=== PATIENT | female | born 1985 | race Caucasian/White ===

== ENCOUNTER 2020-02-20 18:58 | Emergency (ER) | payer MEDICAID, OTHER ==
[~2020-02-20] VITALS: Ht 157.5 cm; Wt 58.2 kg
[~2020-02-20 18:58] MED LIST: CHAN1PAK11 PO; FOLI1TAB11 PO; KLON0.5T PO; MELA3TAB24 PO; NALT50TA4 PO; NICO21PAT TD; PARO20TA3 PO; PARO5TAB PO; PAXI20TA29 PO; QUET100T2 PO; QUET1TAB7 PO; QUET5TAB PO; SERO1TAB PO; THIA100TA PO; VITMTA PO
[2020-02-20 19:00] VITALS: BP 117/67
--- OUTSIDE RECORDS SUMMARY | 2020-02-20 19:05 | CCD ---
Author Author [facility] Address Unknown Phone Unavailable Support Name Relationship Address Phone UE Next Of Kin Unknown Unavailable [facility] Next Of Kin [address] [address] Re-disclosure Warning The records that you are about to access may contain information from federally-assisted alcohol or drug abuse programs. If such information is present, then the following federally mandated warning applies: This information has been disclosed to you from records protected by federal confidentiality rules (42 CFR part 2). The federal rules prohibit you from making any further disclosure of this information unless further disclosure is expressly permitted by the written consent of the person to whom it pertains or as otherwise permitted by 42 CFR part 2. A general authorization for the release of medical or other information is NOT sufficient for this purpose. The Federal rules restrict any use of the information to criminally investigate or prosecute any alcohol or drug abuse patient.The records that you are about to access may contain highly sensitive health information, the redisclosure of which is protected by Article 27-F of the [facility] Public Health law. If you continue you may have access to information: Regarding HIV / AIDS; Provided by facilities licensed or operated by the [facility] Office of Mental Health; or Provided by the [facility] Office for People With Developmental Disabilities. If such information is present, then the following [facility] mandated warning applies: This information has been disclosed to you from confidential records which are protected by state law. State law prohibits you from making any further disclosure of this information without the specific written consent of the person to whom it pertains, or as otherwise permitted by law. Any unauthorized further disclosure in violation of state law may result in a fine or chcf sentence or both. A general authorization for the release of medical or other information is NOT sufficient authorization for further disc losure. Insurance Providers Payer name Policy type / Coverage type Policy ID Covered democrat ID Covered democrat's relationship to ya Policy Ya Plan Information [facility] [id number] SP [id number] [facility] [id number] SP [id number] [facility] [id number] SP [id number] SP [id number] Results ID Date Data Source [id number] 01/27/2020 07:50:00 AM EST [facility] Name Value Range Interpretation Code Description Data Dona rce(s) Supporting Document(s) SARS coronavirus 2 RNA [Presence] in Res piratory specimen by MARIANGEL with probe detection [facility] This lab was ordered by [facility] a nd reported by [facility]. Procedure
[2020-02-20] MEDS ORDERED: B-1100TA2 (19:16)
--- OUTSIDE RECORDS SUMMARY | 2020-02-20 20:31 | CCD ---
Author Author [facility] Address Unknown Phone Unavailable Support Name Relationship Address Phone UE Next Of Kin Unknown Unavailable [facility] Next Of Kin [address] [place] [address] Re-disclosure Warning The records that you are [...] is protected by Article 27-F of the [facility] Public Health law. If you continue you may have access to information: Regarding HIV / AIDS; Provided by facilities licensed or operated by the [facility] Office of Mental Health; or Provided by the [facility] Office for People With Developmental Disabilities. If such information is present, then the following [facility] mandated warning applies: This information has [...] law may result in a fine or half-way sentence or both. A general authorization for the release of medical or other information is NOT sufficient authorization for further disc losure. Insurance Providers Payer name Policy type / Coverage type Policy ID Covered green party ID Covered green party's relationship to ya Policy Ya Plan Information [facility] [id number] SP [id number] [facility] [id number] SP [id number] [facility] [id number] SP [id number] SP [id number] Results ID Date Data Source [id number] 01/27/2020 07:50:00 AM EST [facility] Name Value Range Interpretation Code Description Data Dona rce(s) Supporting Document(s) SARS coronavirus 2 RNA [Presence] in Res piratory specimen by MARIANGEL with probe detection [facility] This lab was ordered by [facility] a nd reported by [facility]. Procedure
[2020-02-20] MEDS ORDERED: NAPROXEN 250 MG TAB PO ONE (21:15)
--- NOTE | 2020-02-20 21:28 | REPVR ---
PROCEDURE INFORMATION: Exam: XR Right Ankle Exam date and time: 02/20/2020 8:33 PM Age: 34 years old Clinical indication: Pain and injury or trauma; Fall; Difficulty in walking and swelling or effusion of joint; Ankle; Sprain or strain and swelling (edema); Right; Additional info: Swelling, unable to bear weight TECHNIQUE: Imaging protocol: XR Right ankle. Views: 3 or more views. COMPARISON: No relevant prior studies available. FINDINGS: Bones/joints: There is an acute, minimally displaced fracture of the right lateral malleolus, with predominantly oblique fracture lines and lateral displacement of the distal component of the fracture by approximately 2 mm. There is asymmetric widening of the lateral aspect of the right ankle mortise. There is an old healed fracture deformity involving the right distal tibial diaphysis, which was not fully imaged. There is a right tibiotalar joint effusion. Soft tissues: There is soft tissue swelling along the lateral aspect of the right ankle. IMPRESSION: 1. Acute, minimally displaced fracture of the right lateral malleolus. 2. Asymmetric widening of the lateral aspect of the right ankle mortise, which may indicate an injury to the lateral ligaments. 3. Soft tissue swelling along the lateral aspect of the right ankle. Electronically signed by: Ari Casper On 02/20/2020 21:28:50 PM
--- NOTE | 2020-02-20 21:29 | REPVR ---
PROCEDURE INFORMATION: Exam: XR Left Knee Exam date and time: 02/20/2020 8:33 PM Age: 34 years old Clinical indication: Pain; Knee; Left; Additional info: Pain with weight bearing TECHNIQUE: Imaging protocol: XR Left knee. Views: 1 or 2 views. COMPARISON: No relevant prior studies available. FINDINGS: Bones/joints: There is no fracture or dislocation. No joint effusion is identified. The joint spaces are preserved. No arthropathy is noted. Soft tissues: Unremarkable. IMPRESSION: No fracture or dislocation of the left knee. Electronically signed by: Ari Casper On 02/20/2020 21:29:44 PM
--- NOTE | 2020-02-22 14:48 | ED PDOC ---
Post-Departure Follow-Up certified letter sent to pt. unable to tell if pt was aware of fracture. please disclose and ask her to fu or ortho and/or return for casting.Evelina Jaimes MD Feb 22, 2020 14:48
== END 2020-02-20 21:28 | disposition left against medical advice (07) ==
LOC: MERGE 18:58 → M ED 18:58
DX: S82.61 Displaced fracture of lateral malleolus of right fibula (principal); M25.562 Pain in left knee; W01.0XXA Fall on same level from slipping, tripping and stumbling without subsequent striking against object, initial encounter; Y92.89 Other specified places as the place of occurrence of the external cause; Y93.01 Activity, walking, marching and hiking; Y99.8 Other external cause status; F99 Mental disorder, not otherwise specified; Z88.0 Allergy status to penicillin; Z79.899 Other long term (current) drug therapy

== ENCOUNTER 2023-04-27 22:05 | Emergency (ER) | payer OTHER, SELFPAY ==
[~2023-04-27] VITALS: Ht 157.5 cm; Wt 71.4 kg
[~2023-04-27 22:05] MED LIST changes: +B-1100TA2; -KLON0.5T PO; +KLON0.5T8 PO; -PAXI20TA29 PO; +PAXI20TA30 PO; +QUET1TAB17 PO; -QUET1TAB7 PO; +QUET50TA4 PO; -QUET5TAB PO
[2023-04-27 23:14] LABS: BASO # 0.1 10^3/uL (0.0-0.2); BASO % 0.8 % (0.0-1.0); EOS # 0.6 10^3/uL (0.0-0.5); EOS % 5.3 % (0.0-3.0); HEMATOCRIT 38.3 % (36.0-47.0); HEMOGLOBIN 13.2 g/dl (12.0-15.5); LYMPH # 2.3 10^3/uL (1.5-5.0); MEAN CORPUSCULAR HEMOGLOBIN 30.3 pg (27.0-33.0); MEAN CORPUSCULAR HGB CONC 34.5 g/dl (32.0-36.5); MONO # 0.7 10^3/uL (0.0-0.8); MONO % 5.9 % (2.0-8.0); NEUTROPHILS # 7.6 10^3/uL (1.5-8.5); NEUTROPHILS % 67.2 % (36.0-66.0); PLATELET COUNT, AUTOMATED 300 10^3/uL (150-450); RED BLOOD COUNT 4.35 10^6/uL (4.00-5.40); WHITE BLOOD COUNT 11.3 10^3/uL (4.0-10.0)
[2023-04-27 23:22] LABS: APPEARANCE, URINE HAZY (CLEAR); BACTERIA, URINE AUTO NEGATIVE (NEGATIVE); BILIRUBIN, URINE AUTO NEGATIVE (NEGATIVE); BLOOD, URINE BLOOD 1+ (NEGATIVE); COLOR, URINE YELLOW (YELLOW); GLUCOSE, URINE (UA) AUTO NEGATIVE (NEGATIVE); KETONE, URINE AUTO NEGATIVE (NEGATIVE); LEUKOCYTE ESTERASE, URINE AUTO NEGATIVE (NEGATIVE); MUCUS, URINE SMALL (NEGATIVE); NITRITE, URINE AUTO NEGATIVE (NEGATIVE); PROTEIN, URINE AUTO NEGATIVE (NEGATIVE); RBC, URINE AUTO 3 /HPF (0-3); SPECIFIC GRAVITY URINE AUTO 1.017 (1.002-1.035); SQUAMOUS EPITHELIAL CELL UR AU 3 /HPF (0-6); UROBILINOGEN, URINE AUTO 0.2 mg/dL (0.0-2.0); WBC, URINE AUTO 1 /HPF (0-3)
[2023-04-27 23:37] LABS: LIPASE 34 U/L (12-53)
[2023-04-27 23:40] LABS: ALBUMIN 3.8 G/DL (3.2-5.2); ALKALINE PHOSPHATASE 73 U/L (46-116); ALT/SGPT < 9 U/L (7.0-40); AST/SGOT 15 U/L (<34); BILIRUBIN,TOTAL 0.2 MG/DL (0.3-1.2); BLOOD UREA NITROGEN 13 MG/DL (9-23); CALCIUM LEVEL 9.5 MG/DL (8.5-10.1); CARBON DIOXIDE LEVEL 28 MMOL/L (20-31); CHLORIDE LEVEL 104 MMOL/L (98-107); CREATININE FOR GFR 0.78 MG/DL (0.55-1.30); GLOMERULAR FILTRATION RATE > 60.0 (>60); GLUCOSE, FASTING 101 MG/DL (60-100); POTASSIUM SERUM 3.8 MMOL/L (3.5-5.1); SODIUM LEVEL 138 MMOL/L (136-145); TOTAL PROTEIN 6.7 G/DL (5.7-8.2)
[2023-04-28] MEDS: ONDANSETRON 4MG ORAL DISINTEGRATING TAB PO ONE (00:34)
[2023-04-28 02:59] LABS: LIPASE 32 U/L (12-53)
[2023-04-28 03:01] LABS: HCG, SERUM QUALITATIVE NEGATIVE (NEGATIVE)
[2023-04-28 03:07] LABS: ALBUMIN 4.3 G/DL (3.2-5.2); ALKALINE PHOSPHATASE 75 U/L (46-116); ALT/SGPT 14 U/L (7.0-40); AST/SGOT 8 U/L (<34); BILIRUBIN,DIRECT < 0.1 MG/DL (<0.4); BILIRUBIN,TOTAL 0.3 MG/DL (0.3-1.2); TOTAL PROTEIN 7.4 G/DL (5.7-8.2)
[2023-04-28] MEDS ORDERED: ISOVUE-370 76% 100ML VIAL As Ordered ONE (03:46)
[2023-04-28] MEDS: KETOROLAC 30 MG/ML 1ML VIAL IV ONE (03:59)
[2023-04-28] MEDS: NS 1,000 ML IV ONE (03:59)
[2023-04-28] MEDS: ONDANSETRON 4MG 2ML VIAL IV ONE (04:22)
[2023-04-28 05:30] VITALS: BP 124/70; TEMP 98.6; O2SAT 99
[2023-04-28] MEDS ORDERED: ONDA4TAB6 PO (06:23)
[2023-04-28] MEDS ORDERED: KETO10TAB PO (06:23)
== END 2023-04-28 06:41 | disposition home or self-care (01) ==
LOC: M ED 22:05
DX: K57.92 Diverticulitis of intestine, part unspecified, without perforation or abscess without bleeding (principal); F12.10 Cannabis abuse, uncomplicated; F19.10 Other psychoactive substance abuse, uncomplicated; Z88.0 Allergy status to penicillin; Z79.899 Other long term (current) drug therapy; Z79.810 Long term (current) use of selective estrogen receptor modulators (SERMs)
CPT/HCPCS: 74177; 80053; 80076; 81001; 83690; 84703; 85025; 87086; 96361; 96374; 96375; 99284; J1885; J2405; Q9967

== ENCOUNTER 2023-07-07 00:51 | Inpatient (IN) | payer MEDICAID, OTHER, SELFPAY ==
[~2023-07-07] VITALS: Ht 162.6 cm; Wt 61.5 kg
[~2023-07-07 00:51] MED LIST changes: +KETO10TAB PO; +ONDA-282 PO
[2023-07-07 02:11] LABS: HEMATOCRIT 38.2 % (36.0-47.0); HEMOGLOBIN 13.4 g/dl (12.0-15.5); MEAN CORPUSCULAR HEMOGLOBIN 30.7 pg (27.0-33.0); MEAN CORPUSCULAR HGB CONC 35.1 g/dl (32.0-36.5); MEAN CORPUSCULAR VOLUME 87.4 fl (80.0-96.0); PLATELET COUNT, AUTOMATED 296 10^3/uL (150-450); RED BLOOD COUNT 4.37 10^6/uL (4.00-5.40); WHITE BLOOD COUNT 11.8 10^3/uL (4.0-10.0)
[2023-07-07 02:13] LABS: AMPHETAMINES LEVEL URINE NEGATIVE (NEGATIVE); BARBITURATES URINE NEGATIVE (NEGATIVE); BENZODIAZEPINES URINE NEGATIVE (NEGATIVE); COCAINE METABOLITE URINE NEGATIVE (NEGATIVE); METHADONE URINE NEGATIVE (NEGATIVE); OPIATES URINE NEGATIVE (NEGATIVE)
[2023-07-07 02:14] LABS: PHENCYCLIDINE URINE NEGATIVE (NEGATIVE)
[2023-07-07 02:16] LABS: ETHYL ALCOHOL (ETHANOL) < 0.003 % (0.000-0.010)
[2023-07-07 02:17] LABS: SALICYLATE LEVEL < 3.0 MG/DL (<30)
[2023-07-07 02:18] LABS: ALBUMIN 4.4 G/DL (3.2-5.2); ALKALINE PHOSPHATASE 71 U/L (46-116); ALT/SGPT 22 U/L (7.0-40); AST/SGOT 27 U/L (<34); BILIRUBIN,DIRECT 0.1 MG/DL (<0.4); BILIRUBIN,TOTAL 0.5 MG/DL (0.3-1.2); BLOOD UREA NITROGEN 24 MG/DL (9-23); CARBON DIOXIDE LEVEL 23 MMOL/L (20-31); CHLORIDE LEVEL 101 MMOL/L (98-107); CREATININE FOR GFR 0.76 MG/DL (0.55-1.30); GLOMERULAR FILTRATION RATE > 60.0 (>60); GLUCOSE, FASTING 108 MG/DL (60-100); POTASSIUM SERUM 3.7 MMOL/L (3.5-5.1); SODIUM LEVEL 136 MMOL/L (136-145); TOTAL PROTEIN 7.3 G/DL (5.7-8.2)
[2023-07-07 02:20] LABS: THYROID STIMULATING HORMONE 2.276 uIU/ML (0.55-4.78)
[2023-07-07 02:36] LABS: HCG, SERUM QUALITATIVE NEGATIVE (NEGATIVE)
[2023-07-07 02:36] LABS: CANNABINOIDS URINE POSITIVE (NEGATIVE)
[2023-07-07] MEDS: LORazepam 2 MG TAB PO ONE (04:29)
[2023-07-07] MEDS ORDERED: TRAZ-189 PO (05:36)
[2023-07-07] MEDS ORDERED: PROP40TA62 PO (05:36)
[2023-07-07] MEDS ORDERED: KETO10TAB PO (05:36)
[2023-07-07] MEDS ORDERED: HOME MED LIST COMPLETE! XX SCH (05:40)
[2023-07-07 06:49] VITALS: BP 160/71; TEMP 97.8; O2SAT 95
[2023-07-07] MEDS: OLANZapine 5 MG TAB PO SCH (09:00)
[2023-07-07] MEDS: ONDANSETRON 4MG ORAL DISINTEGRATING TAB PO ONE (11:05)
[2023-07-07] MEDS: LORazepam 1 MG TAB PO PRN (11:59)
[2023-07-07] MEDS: OLANZapine ORAL DISINTEGRATING TAB 5MG PO PRN (13:49)
[2023-07-07 16:22] VITALS: BP 125/76; TEMP 97.4; O2SAT 98
[2023-07-07 20:21] VITALS: BP 131/82
[2023-07-07] MEDS: PROPRANOLOL 20 MG TAB PO SCH (20:37)
[2023-07-07] MEDS: traZODone 100 MG TAB PO PRN (20:37)
[2023-07-07] MEDS: PALIPERIDONE 3MG ER TAB (INVEGA) PO SCH (20:37)
[2023-07-08 06:22] VITALS: BP 113/59; TEMP 97.8; O2SAT 100
[2023-07-08 07:34] LABS: CHOLESTEROL RISK RATIO 3.6 (<5); HDL CHOLESTEROL 44.4 MG/DL (>40); LDL CHOLESTEROL 93.2 MG/DL (<100); NON-HDL-C 115.6 MG/DL
[2023-07-08] MEDS: ONDANSETRON 4MG ORAL DISINTEGRATING TAB PO PRN (08:26)
[2023-07-08 18:04] VITALS: BP 131/82; TEMP 97.6
[2023-07-08 20:07] VITALS: BP 148/82
[2023-07-08] MEDS: DIVALPROEX 250MG TAB PO SCH (20:09)
[2023-07-09 06:08] VITALS: BP 156/85; TEMP 98.8; O2SAT 98
[2023-07-09] MEDS: PALIPERIDONE 6MG ER TAB (INVEGA) PO SCH (10:15)
[2023-07-09] MEDS: LORazepam 2 MG TAB PO ONE (12:54)
[2023-07-09 16:57] VITALS: BP 138/88; TEMP 97.1; O2SAT 97
[2023-07-09] MEDS: DIVALPROEX 500 MG TAB PO SCH (20:13)
[2023-07-10] MEDS: LORazepam 2 MG/ML 1ML VIAL IM STA (08:42)
[2023-07-10] MEDS: HALOPERIDOL LACTATE 5MG/ML VIAL IM STA (08:42)
[2023-07-10] MEDS: diphenhydrAMINE 50MG/ML VIAL IM ONE (08:45)
[2023-07-10] MEDS: LORazepam 2 MG TAB PO ONE (08:55)
[2023-07-10 17:06] VITALS: BP 138/82; TEMP 99.3; O2SAT 98
[2023-07-11 06:07] VITALS: BP 134/77; TEMP 97.8; O2SAT 100
[2023-07-11] MEDS: PALIPERIDONE PAL 234MG/1.5ML INJ (INVEGA)(FREE PSY INPT ONLY) IM ONE (09:53)
[2023-07-11 16:13] VITALS: BP 138/78; TEMP 97.5; O2SAT 98
[2023-07-11] MEDS: DIVALPROEX 250MG TAB PO SCH (20:19)
[2023-07-12 06:27] VITALS: BP 134/77; TEMP 98.1; O2SAT 100
[2023-07-12 16:00] VITALS: BP 115/65; TEMP 98.3; O2SAT 98
[2023-07-12 20:56] VITALS: BP 118/61
[2023-07-13 05:54] VITALS: BP 113/63; TEMP 97.2; O2SAT 97
[2023-07-13 18:00] VITALS: BP 116/60; TEMP 96.1; TEMP 96.9; O2SAT 97
[2023-07-14 06:59] VITALS: BP 109/53; TEMP 97; O2SAT 100
[2023-07-14 16:22] VITALS: BP 123/70; TEMP 97.2; O2SAT 94
[2023-07-14 20:06] VITALS: BP 126/70
[2023-07-15 06:30] VITALS: BP 104/58; TEMP 97.2; O2SAT 95
[2023-07-15] MEDS ORDERED: PALI1TAB3 PO (08:24)
[2023-07-15] MEDS ORDERED: DEPA250T32 PO (08:24)
[2023-07-15] MEDS ORDERED: PROP40TA62 PO (08:24)
[2023-07-15] MEDS ORDERED: TRAZ-189 PO (08:24)
[2023-07-15] MEDS ORDERED: HALO5TAB33 PO (08:24)
[2023-07-15] MEDS ORDERED: INVE234I IM (08:51)
[2023-07-15] MEDS ORDERED: PALIPERIDONE PAL 156MG/1ML INJ(INVEGA)(FREE PSY INPT ONLY) IM ONE (09:00)
[2023-07-15] MEDS: PALIPERIDONE PAL 156MG/1ML INJ(INVEGA)(FREE PSY INPT ONLY) IM ONE (11:33)
== END 2023-07-15 16:23 | disposition home or self-care (01) | DRG 753 ==
LOC: M ED 00:51 → M ED INP 05:29 → M PSY 06:04
PROVIDERS: ADMIT Student in an Organized Health Care Education/Training Program; ATTEND Student in an Organized Health Care Education/Training Program
DX: F31.9 Bipolar disorder, unspecified (principal); F40.01 Agoraphobia with panic disorder; F43.12 Post-traumatic stress disorder, chronic; F12.10 Cannabis abuse, uncomplicated; F10.10 Alcohol abuse, uncomplicated; K31.89 Other diseases of stomach and duodenum; R11.10 Vomiting, unspecified; Z59.00 Homelessness unspecified; Z79.899 Other long term (current) drug therapy; Z88.0 Allergy status to penicillin; Z91.410 Personal history of adult physical and sexual abuse; Z56.0 Unemployment, unspecified; Z91.52 Personal history of nonsuicidal self-harm

== ENCOUNTER 2024-06-25 01:03 | Inpatient (IN) | payer MEDICAID, OTHER ==
[~2024-06-25] VITALS: Ht 157.5 cm; Wt 78.6 kg
[~2024-06-25 01:03] MED LIST changes: +DEPA250T32 PO; +HALO5TAB33 PO; +INVE234I IM; +PALI1TAB3 PO; +PROP40TA62 PO; +TRAZ-189 PO
[2024-06-25 02:02] LABS: HEMATOCRIT 44.3 % (36.0-47.0); HEMOGLOBIN 15.8 g/dl (12.0-15.5); MEAN CORPUSCULAR HEMOGLOBIN 29.8 pg (27.0-33.0); MEAN CORPUSCULAR HGB CONC 35.7 g/dl (32.0-36.5); MEAN CORPUSCULAR VOLUME 83.4 fl (80.0-96.0); PLATELET COUNT, AUTOMATED 443 10^3/uL (150-450); RED BLOOD COUNT 5.31 10^6/uL (4.00-5.40); WHITE BLOOD COUNT 13.3 10^3/uL (4.0-10.0)
[2024-06-25 02:48] LABS: ALBUMIN 4.4 G/DL (3.2-5.2); ALKALINE PHOSPHATASE 74 U/L (35-104); ALT/SGPT 50 U/L (7.0-40); AST/SGOT 36 U/L (<34); BILIRUBIN,DIRECT 0.3 MG/DL (<0.4); BILIRUBIN,TOTAL 0.8 MG/DL (0.3-1.2); BLOOD UREA NITROGEN 31 MG/DL (9-23); CALCIUM LEVEL 10.5 MG/DL (8.5-10.1); CARBON DIOXIDE LEVEL 18 MMOL/L (20-31); CHLORIDE LEVEL 93 MMOL/L (98-107); CREATININE FOR GFR 0.78 MG/DL (0.55-1.30); GLOMERULAR FILTRATION RATE > 90.0 (>60); GLUCOSE, FASTING 123 MG/DL (60-100); HCG, SERUM QUALITATIVE NEGATIVE (NEGATIVE); POTASSIUM SERUM 3.3 MMOL/L (3.5-5.1); SODIUM LEVEL 135 MMOL/L (136-145); TOTAL PROTEIN 8.4 G/DL (5.7-8.2)
[2024-06-25 04:18] LABS: AMPHETAMINES LEVEL URINE NEGATIVE (NEGATIVE); BARBITURATES URINE NEGATIVE (NEGATIVE); BENZODIAZEPINES URINE NEGATIVE (NEGATIVE); COCAINE METABOLITE URINE NEGATIVE (NEGATIVE); KETONE, URINE AUTO RFX 2+ mg/dL (NEGATIVE); LEUKOCYTE ESTERASE UR AUTO RFX NEGATIVE (NEGATIVE); MUCUS, URINE RFX SMALL (NEGATIVE); NITRITE, URINE AUTO RFX NEGATIVE (NEGATIVE); OPIATES URINE NEGATIVE (NEGATIVE); PHENCYCLIDINE URINE NEGATIVE (NEGATIVE); RBC, URINE AUTO RFX 2 /HPF (0-3); SQUAM EPITHELIAL CELL UR AURFX 5 /HPF (0-6); WBC, URINE AUTO RFX 2 /HPF (0-3)
[2024-06-25 04:33] LABS: CANNABINOIDS URINE POSITIVE (NEGATIVE); METHADONE URINE NEGATIVE (NEGATIVE)
[2024-06-25 06:40] LABS: BASO # 0.1 10^3/uL (0.0-0.2); BASO % 0.7 % (0.0-1.0); EOS # 0.1 10^3/uL (0.0-0.5); EOS % 0.6 % (0.0-3.0); LYMPH % 15.5 % (24.0-44.0); MONO # 0.9 10^3/uL (0.0-0.8); MONO % 7.2 % (2.0-8.0); NEUTROPHILS # 9.9 10^3/uL (1.5-8.5); NEUTROPHILS % 74.9 % (36.0-66.0)
[2024-06-25] MEDS: ONDANSETRON 4MG 2ML VIAL IV ONE (07:13)
[2024-06-25] MEDS: NS (Normal Saline) 0.9% 1,000 ML IV ONE ×2 (07:13→13:45)
[2024-06-25] MEDS ORDERED: ISOVUE-370 76% 100ML VIAL As Ordered ONE (08:13)
[2024-06-25] MEDS: METOCLOPRAMIDE INJ 10MG/2ML VIAL IV ONE (08:16)
[2024-06-25] MEDS: PANTOPRAZOLE 40MG VIAL IV ONE (09:48)
[2024-06-25] MEDS: PROMETHAZINE 25MG/ML 1ML VIAL IV ONE (09:48)
[2024-06-25 13:09] LABS: VENOUS BASE EXCESS -2.4 (-2.0-2.0); VENOUS HCO3 20.9 MMOL/L (23.0-27.0); VENOUS O2 SATURATION 97.9 % (60.0-80.0); VENOUS PARTIAL PRESSURE CO2 32.2 mmHg (38.0-50.0); VENOUS PARTIAL PRESSURE O2 104.1 mmHg (30.0-50.0); VENOUS STANDARD HCO3 22.4 MMOL/L; VENOUS TOTAL CO2 21.9 MMOL/L (24.0-28.0)
[2024-06-25 13:38] LABS: LIPASE 43 U/L (12-53)
[2024-06-25 13:40] LABS: AMYLASE 59 U/L (30-118)
[2024-06-25] MEDS: VANCOMYCIN HCL 1,250 MG, VIAL MATE ADAPTER 1 EACH in NS 250 ML IV ONE (13:45)
[2024-06-25] MEDS ORDERED: TRAZ-257 PO (15:21)
[2024-06-25] MEDS ORDERED: GABA-1172 PO (15:21)
[2024-06-25] MEDS ORDERED: QUET50TA4 PO (15:21)
[2024-06-25] MEDS ORDERED: HOME MED LIST COMPLETE! XX SCH (15:25)
[2024-06-25 15:35] LABS: ETHYL ALCOHOL (ETHANOL) 0.003 % (0.000-0.010)
[2024-06-25 15:36] LABS: SALICYLATE LEVEL < 3.0 MG/DL (<30)
[2024-06-25] MEDS: KCL 10MEQ/100ML SWI (KRUN) 10 MEQ in IV 1 EA IV SCH (18:26)
[2024-06-25] MEDS: NS (Normal Saline) 0.9% 1,000 ML IV SCH (19:36)
[2024-06-25 20:34] LABS: BLOOD UREA NITROGEN 22 MG/DL (9-23); CALCIUM LEVEL 7.4 MG/DL (8.5-10.1); CARBON DIOXIDE LEVEL 22 MMOL/L (20-31); CHLORIDE LEVEL 103 MMOL/L (98-107); CREATININE FOR GFR 0.67 MG/DL (0.55-1.30); GLOMERULAR FILTRATION RATE > 90.0 (>60); GLUCOSE, FASTING 79 MG/DL (60-100); POTASSIUM SERUM 3.1 MMOL/L (3.5-5.1); SODIUM LEVEL 139 MMOL/L (136-145)
[2024-06-25 21:16] VITALS: BP 129/90; TEMP 98; O2SAT 98
[2024-06-25] MEDS: SUCRALFATE 1 GM TAB PO SCH (21:47)
[2024-06-25] MEDS: BUPRENORPHINE/NALOXONE 2-0.5MG SUBLINGUAL TABLET(SUBOXONE) SL SCH (21:47)
[2024-06-25 23:22] VITALS: BP 113/59; TEMP 97.8; O2SAT 98
[2024-06-25] MEDS: VANCOMYCIN HCL 1,000 MG, VIAL MATE ADAPTER 1 EACH in NS 250 ML IV SCH (23:27)
[2024-06-26] MEDS ORDERED: QUEtiapine FUMARATE 200 MG TAB PO ONE (00:55)
[2024-06-26 03:35] VITALS: BP 135/74; TEMP 97.6; O2SAT 97
[2024-06-26 06:25] LABS: MEAN CORPUSCULAR HEMOGLOBIN 29.6 pg (27.0-33.0); MEAN CORPUSCULAR HGB CONC 34.5 g/dl (32.0-36.5); MEAN CORPUSCULAR VOLUME 85.6 fl (80.0-96.0); PLATELET COUNT, AUTOMATED 266 10^3/uL (150-450); RED BLOOD COUNT 3.62 10^6/uL (4.00-5.40); WHITE BLOOD COUNT 8.2 10^3/uL (4.0-10.0)
[2024-06-26 06:29] LABS: HEMOGLOBIN 10.7 g/dl (12.0-15.5)
[2024-06-26 06:34] LABS: BLOOD UREA NITROGEN 16 MG/DL (9-23); CALCIUM LEVEL 7.2 MG/DL (8.5-10.1); CARBON DIOXIDE LEVEL 26 MMOL/L (20-31); CHLORIDE LEVEL 105 MMOL/L (98-107); CREATININE FOR GFR 0.61 MG/DL (0.55-1.30); GLOMERULAR FILTRATION RATE > 90.0 (>60); GLUCOSE, FASTING 84 MG/DL (60-100); MAGNESIUM LEVEL 1.9 MG/DL (1.8-2.4); SODIUM LEVEL 141 MMOL/L (136-145)
[2024-06-26 08:27] VITALS: BP 140/71; TEMP 99; O2SAT 96
[2024-06-26] MEDS: POTASSIUM CHLORIDE 10MEQ SR TABLET PO SCH (09:43)
[2024-06-26] MEDS: PANTOPRAZOLE 40MG VIAL IV SCH (09:44)
[2024-06-26] MEDS ORDERED: VANCOMYCIN HCL 1,250 MG, VIAL MATE ADAPTER 1 EACH in NS 250 ML IV SCH (11:00)
[2024-06-26] MEDS ORDERED: VANCOMYCIN HCL 750 MG, VIAL MATE ADAPTER 1 EACH in NS 250 ML IV SCH (11:00)
[2024-06-26] MEDS: MAG SULF 1GM/100ML (MAG RUN) 1 GM in IV 1 EA IV SCH (11:19)
[2024-06-26 12:13] VITALS: BP 167/79; TEMP 98; O2SAT 96
[2024-06-26] MEDS: QUEtiapine FUMARATE 50MG TAB PO SCH (13:03)
[2024-06-26] MEDS: GABAPENTIN 300 MG CAP PO PRN (13:03)
[2024-06-26] MEDS: DOXYCYCLINE HYCLATE 100MG TABLET PO SCH (13:06)
[2024-06-26 15:46] VITALS: BP 133/75; TEMP 98.9; O2SAT 98
[2024-06-26] MEDS ORDERED: TRAZ1TAB14 PO (18:42)
[2024-06-26] MEDS ORDERED: traZODone 100 MG TAB PO SCH (21:00)
[2024-06-26 21:15] VITALS: BP 132/76; TEMP 98.3; O2SAT 96
[2024-06-26] MEDS: PROPRANOLOL 20 MG TAB PO SCH (21:20)
[2024-06-26] MEDS: traZODone 100 MG TAB PO SCH (21:21)
[2024-06-26] MEDS: QUEtiapine FUMARATE 100 MG TAB PO SCH (21:21)
[2024-06-26] MEDS: BUPRENORPHINE/NALOXONE 2-0.5MG SUBLINGUAL TABLET(SUBOXONE) SL SCH (21:22)
[2024-06-27 00:17] VITALS: BP 129/59; TEMP 98.6; O2SAT 96
[2024-06-27 04:11] VITALS: BP 113/61; TEMP 98.8; O2SAT 98
[2024-06-27 04:45] LABS: HEMATOCRIT 30.6 % (36.0-47.0); HEMOGLOBIN 10.4 g/dl (12.0-15.5); MEAN CORPUSCULAR HEMOGLOBIN 29.5 pg (27.0-33.0); MEAN CORPUSCULAR VOLUME 86.9 fl (80.0-96.0); PLATELET COUNT, AUTOMATED 260 10^3/uL (150-450); RED BLOOD COUNT 3.52 10^6/uL (4.00-5.40); WHITE BLOOD COUNT 8.8 10^3/uL (4.0-10.0)
[2024-06-27 05:09] LABS: BLOOD UREA NITROGEN 8 MG/DL (9-23); CALCIUM LEVEL 7.7 MG/DL (8.5-10.1); CARBON DIOXIDE LEVEL 28 MMOL/L (20-31); CHLORIDE LEVEL 105 MMOL/L (98-107); GLOMERULAR FILTRATION RATE > 90.0 (>60); GLUCOSE, FASTING 97 MG/DL (60-100); POTASSIUM SERUM 3.4 MMOL/L (3.5-5.1); SODIUM LEVEL 142 MMOL/L (136-145)
[2024-06-27 08:06] VITALS: BP 110/63; TEMP 96.2; O2SAT 97
[2024-06-27 12:00] VITALS: BP 121/60; TEMP 98.9; O2SAT 92
[2024-06-27 12:22] LABS: HEMOGLOBIN A1c 5.1 % (4.0-6.0)
[2024-06-27 16:01] VITALS: BP 128/72; TEMP 98.7; O2SAT 96
[2024-06-27 20:06] VITALS: BP 138/86; TEMP 99.7; O2SAT 95
[2024-06-27] MEDS: LORazepam 0.5 MG TAB PO PRN (20:19)
[2024-06-28 04:10] VITALS: BP 120/63; TEMP 96.9; O2SAT 90
[2024-06-28 05:17] LABS: HEMATOCRIT 29.8 % (36.0-47.0); HEMOGLOBIN 10.3 g/dl (12.0-15.5); MEAN CORPUSCULAR HEMOGLOBIN 29.9 pg (27.0-33.0); MEAN CORPUSCULAR HGB CONC 34.6 g/dl (32.0-36.5); MEAN CORPUSCULAR VOLUME 86.6 fl (80.0-96.0); PLATELET COUNT, AUTOMATED 255 10^3/uL (150-450); RED BLOOD COUNT 3.44 10^6/uL (4.00-5.40); WHITE BLOOD COUNT 10.8 10^3/uL (4.0-10.0)
[2024-06-28 05:43] LABS: BLOOD UREA NITROGEN 8 MG/DL (9-23); C REACTIVE PROTEIN QUANTITATIV 8.33 MG/DL (<1.0); CALCIUM LEVEL 8.1 MG/DL (8.5-10.1); CARBON DIOXIDE LEVEL 29 MMOL/L (20-31); CHLORIDE LEVEL 103 MMOL/L (98-107); CREATININE FOR GFR 0.65 MG/DL (0.55-1.30); GLOMERULAR FILTRATION RATE > 90.0 (>60); GLUCOSE, FASTING 122 MG/DL (60-100); POTASSIUM SERUM 3.4 MMOL/L (3.5-5.1); SODIUM LEVEL 143 MMOL/L (136-145)
[2024-06-28 05:54] LABS: PROCALCITONIN 0.09 ng/ml
[2024-06-28 08:04] VITALS: BP 119/60; TEMP 99.3; O2SAT 92
[2024-06-28] MEDS: POTASSIUM CHLORIDE 10MEQ SR TABLET PO ONE (09:37)
[2024-06-28 10:14] LABS: ERYTHROCYTE SEDIMENTATION RATE 29 mm/hr (0-20)
[2024-06-28 15:56] VITALS: BP 123/69; TEMP 98.1; O2SAT 92
[2024-06-28 16:13] LABS: HEPATITIS B SURFACE ANTIGEN NEGATIVE (NEGATIVE)
[2024-06-28 16:26] LABS: HIV 1&2 SCREEN NEGATIVE (NEGATIVE)
[2024-06-28 16:33] LABS: HEPATITIS C VIRUS ABY INDEX 0.05 INDEX (<0.8)
[2024-06-28 19:53] VITALS: BP 131/66; TEMP 98.2; O2SAT 93
[2024-06-28] MEDS: CEPHALEXIN 500 MG CAP PO SCH (20:33)
[2024-06-28 20:35] VITALS: BP 144/66
[2024-06-29 00:16] VITALS: BP 124/82; TEMP 97.7; O2SAT 93
[2024-06-29 04:44] VITALS: BP 123/80; TEMP 97.9; O2SAT 94
[2024-06-29 05:42] LABS: HEMATOCRIT 30.2 % (36.0-47.0); HEMOGLOBIN 9.9 g/dl (12.0-15.5); MEAN CORPUSCULAR HEMOGLOBIN 29.4 pg (27.0-33.0); MEAN CORPUSCULAR HGB CONC 32.8 g/dl (32.0-36.5); MEAN CORPUSCULAR VOLUME 89.6 fl (80.0-96.0); PLATELET COUNT, AUTOMATED 256 10^3/uL (150-450); RED BLOOD COUNT 3.37 10^6/uL (4.00-5.40); WHITE BLOOD COUNT 7.2 10^3/uL (4.0-10.0)
[2024-06-29 06:04] LABS: BLOOD UREA NITROGEN 8 MG/DL (9-23); CALCIUM LEVEL 8.6 MG/DL (8.5-10.1); CARBON DIOXIDE LEVEL 33 MMOL/L (20-31); CHLORIDE LEVEL 104 MMOL/L (98-107); CREATININE FOR GFR 0.65 MG/DL (0.55-1.30); GLOMERULAR FILTRATION RATE > 90.0 (>60); GLUCOSE, FASTING 116 MG/DL (60-100); POTASSIUM SERUM 3.8 MMOL/L (3.5-5.1); SODIUM LEVEL 145 MMOL/L (136-145)
[2024-06-29] MEDS ORDERED: SUBO2MIS SL ×2 (10:37→10:50)
[2024-06-29] MEDS ORDERED: DOXY100T PO ×2 (10:37→10:50)
[2024-06-29] MEDS ORDERED: CEPH500C PO ×2 (10:37→10:50)
[2024-06-29] MEDS ORDERED: BUPR1SUB4 SL (11:07)
== END 2024-06-29 12:44 | disposition home or self-care (01) | DRG 720 ==
LOC: M ED 01:03 → M ED INP 13:20 → M PCU 20:38 → M MSPAV 06-29 00:16
PROVIDERS: ADMIT Student in an Organized Health Care Education/Training Program; ATTEND Internal Medicine
PROC: B246ZZZ Ultrasonography of Right and Left Heart (ICD-10-PCS; principal; 2024-06-27)
DX: A41.9 Sepsis, unspecified organism (principal); E87.20 Acidosis, unspecified; E87.1 Hypo-osmolality and hyponatremia; N28.1 Cyst of kidney, acquired; K76.89 Other specified diseases of liver; E87.6 Hypokalemia; F41.0 Panic disorder [episodic paroxysmal anxiety]; F31.9 Bipolar disorder, unspecified; F32.A Depression, unspecified; F43.10 Post-traumatic stress disorder, unspecified; R11.15 Cyclical vomiting syndrome unrelated to migraine; L03.114 Cellulitis of left upper limb; Z79.899 Other long term (current) drug therapy; Z88.0 Allergy status to penicillin

== ENCOUNTER 2024-09-24 16:29 | Emergency (ER) | payer MEDICAID, OTHER ==
[~2024-09-24] VITALS: Ht 157.5 cm; Wt 72.1 kg
[~2024-09-24 16:29] MED LIST changes: +BUPR1SUB4 SL; +CEPH500C PO; -DEPA250T32 PO; +DIVA-65 PO; +DOXY100T PO; +GABA-1172 PO; +SUBO2MIS SL; +TRAZ-257 PO; +TRAZ1TAB14 PO
[2024-09-24 16:31] VITALS: BP 121/74; TEMP 97.4; O2SAT 99
[2024-09-24] MEDS: PERCOCET 5MG/325MG TAB PO ONE (18:53)
[2024-09-24] MEDS: ONDANSETRON 4MG ORAL DISINTEGRATING TAB PO ONE (18:53)
[2024-09-24] MEDS ORDERED: PERC5TAB12 PO (20:04)
[2024-09-24] MEDS ORDERED: PROM12.56 PO (20:04)
[2024-09-24] MEDS: OXYCODONE/APAP 5MG/325MG(HOME DOSE PACK) PO ONE (20:16)
== END 2024-09-24 20:26 | disposition home or self-care (01) ==
LOC: M ED 16:29
DX: S52.572A Other intraarticular fracture of lower end of left radius, initial encounter for closed fracture (principal); S52.612A Displaced fracture of left ulna styloid process, initial encounter for closed fracture; Y92.410 Unspecified street and highway as the place of occurrence of the external cause; Y93.9 Activity, unspecified; Y99.9 Unspecified external cause status; Y04.2XXA Assault by strike against or bumped into by another person, initial encounter; Z88.0 Allergy status to penicillin; Z79.2 Long term (current) use of antibiotics; Z79.899 Other long term (current) drug therapy

== ENCOUNTER 2024-10-07 08:04 | Day surgery (SDC) | payer OTHER ==
[~2024-10-07] VITALS: Ht 157.5 cm; Wt 72.6 kg
[~2024-10-07 08:04] MED LIST changes: +LAMO-18 PO; +PERC5TAB12 PO; +PROM12.56 PO
[2024-10-07] MEDS ORDERED: LR 1,000 ML IV SCH (08:15)
[2024-10-07] MEDS: MIDAZOLAM INJ 2 MG/2 ML VIAL IV PRN (08:55)
[2024-10-07] MEDS: ROPIvacaine 0.5% 30ML VIAL PN ONE (08:58)
[2024-10-07] MEDS: LIDOCAINE 1% SDV 5 ML VIAL PN ONE (08:58)
[2024-10-07] MEDS ORDERED: LIDOCAINE 2% 100 MG/5 ML SDV (FOR ANES.) As Ordered ONE (09:15)
[2024-10-07] MEDS: ceFAZolin SOD 2 GM IV ONCE IV ONE (10:14)
[2024-10-07] MEDS ORDERED: dexAMETHasone 4 MG/ML 1 ML VIAL As Ordered ONE (10:15)
[2024-10-07] MEDS ORDERED: ONDANSETRON 4MG 2ML VIAL As Ordered ONE (10:15)
[2024-10-07] MEDS ORDERED: KETOROLAC 30 MG/ML 1 ML VIAL As Ordered ONE (10:18)
[2024-10-07] MEDS ORDERED: ACETAMINOPHEN 1000MG/100ML IV BAG As Ordered ONE (10:18)
[2024-10-07] MEDS: ONDANSETRON 4MG 2ML VIAL IV PRN (11:50)
[2024-10-07] MEDS ORDERED: PERC5TAB12 PO (12:06)
[2024-10-07 13:45] VITALS: BP 126/69; TEMP 97.3; O2SAT 99
== END 2024-10-07 14:16 | disposition home or self-care (01) ==
LOC: M SDC 08:04
PROVIDERS: ATTEND Orthopaedic Surgery Hand Surgery
DX: S52.572A Other intraarticular fracture of lower end of left radius, initial encounter for closed fracture (principal); X58.XXXA Exposure to other specified factors, initial encounter; Y92.89 Other specified places as the place of occurrence of the external cause; F43.10 Post-traumatic stress disorder, unspecified; Z88.0 Allergy status to penicillin; Z79.899 Other long term (current) drug therapy; Z87.891 Personal history of nicotine dependence
CPT/HCPCS: 25609; 76000; 81025; C1713; J0131; J0690; J1100; J1885; J2250; J2405; J2765; J2795; J3010

== ENCOUNTER → 2024-10-17 | Outpatient (CLI) | payer OTHER | LOC: M SOG 07:56 | PROVIDERS: ATTEND Physician Assistant | DX: S52.572A Other intraarticular fracture of lower end of left radius, initial encounter for closed fracture (principal) ==

== ENCOUNTER 2024-11-17 03:48 | Inpatient (IN) | payer OTHER, MEDICAID ==
[~2024-11-17] VITALS: Ht 157.5 cm; Wt 66.4 kg
[2024-11-17] MEDS: diphenhydrAMINE 50 MG/ML VIAL IM ONE (04:39)
[2024-11-17] MEDS: MIDAZOLAM INJ 2 MG/2 ML VIAL IM ONE (04:39)
[2024-11-17] MEDS: HALOPERIDOL LACTATE 5 MG/ML VIAL IM ONE (04:39)
[2024-11-17 05:26] LABS: PLATELET COUNT, AUTOMATED 552 10^3/uL (150-450)
[2024-11-17 05:40] LABS: HCG, SERUM QUALITATIVE NEGATIVE (NEGATIVE)
[2024-11-17 06:20] LABS: ETHYL ALCOHOL (ETHANOL) < 0.003 % (0.000-0.010)
[2024-11-17 06:22] LABS: ALT/SGPT 53 U/L (7.0-40); AST/SGOT 39 U/L (<34); CALCIUM LEVEL 8.4 MG/DL (8.5-10.1); CARBON DIOXIDE LEVEL 22 MMOL/L (20-31); CHLORIDE LEVEL 98 MMOL/L (98-107); CREATININE FOR GFR 0.75 MG/DL (0.55-1.30); GLOMERULAR FILTRATION RATE > 90.0 (>60); POTASSIUM SERUM 4.0 MMOL/L (3.5-5.1); SALICYLATE LEVEL < 3.0 MG/DL (<30); SODIUM LEVEL 136 MMOL/L (136-145)
[2024-11-17] MEDS ORDERED: LAMO100T3 PO (07:33)
[2024-11-17 08:32] LABS: AMPHETAMINES LEVEL URINE NEGATIVE (NEGATIVE); BARBITURATES URINE NEGATIVE (NEGATIVE); COCAINE METABOLITE URINE NEGATIVE (NEGATIVE); METHADONE URINE NEGATIVE (NEGATIVE); OPIATES URINE NEGATIVE (NEGATIVE); PHENCYCLIDINE URINE NEGATIVE (NEGATIVE)
[2024-11-17 08:33] LABS: BENZODIAZEPINES URINE POSITIVE (NEGATIVE); CANNABINOIDS URINE POSITIVE (NEGATIVE)
[2024-11-17] MEDS ORDERED: QUEtiapine FUMARATE 50MG TAB PO SCH (09:00)
[2024-11-17] MEDS: GABAPENTIN 300 MG CAP PO SCH (09:24)
[2024-11-17] MEDS: lamoTRIgine 100 MG TAB PO SCH (09:24)
[2024-11-17] MEDS ORDERED: PROM25TA12 PO (10:28)
[2024-11-17] MEDS ORDERED: ONDA-83 PO (10:29)
[2024-11-17] MEDS ORDERED: HOME MED LIST COMPLETE! XX SCH (10:30)
[2024-11-17] MEDS: QUEtiapine FUMARATE 50MG TAB PO SCH (11:36)
[2024-11-17] MEDS ORDERED: ISOVUE-370 76% 100 ML VIAL As Ordered ONE (12:41)
[2024-11-17] MEDS ORDERED: BISACODYL 10 MG SUPP PR PRN (16:15)
[2024-11-17] MEDS ORDERED: ACETAMINOPHEN 325 MG TAB PO PRN (16:15)
[2024-11-17] MEDS ORDERED: LEVALBUTEROL 1.25 MG 0.5ML CONCENTRATE NEB NEB PRN (16:15)
[2024-11-17] MEDS: D5W/0.9% SODIUM CHLORIDE 1,000 ML IV SCH (16:42)
[2024-11-17 16:51] LABS: LDH LACTATE DEHYDROGENASE 250 U/L (120-246)
[2024-11-17] MEDS: FLUMAZENIL 0.5 MG/5 ML VIAL IV STA (17:16)
[2024-11-17 17:27] VITALS: BP 122/74; TEMP 96.7; O2SAT 97
[2024-11-17 17:47] LABS: HEPATITIS C VIRUS ABY INDEX 0.02 INDEX (<0.8)
[2024-11-17 17:48] LABS: C REACTIVE PROTEIN QUANTITATIV 21.61 MG/DL (<1.0)
[2024-11-17] MEDS: LIDOCAINE 1% MDV 20 ML VIAL SC STA (19:13)
[2024-11-17] MEDS: KETOROLAC 30 MG/ML 1 ML VIAL IV SCH (19:15)
[2024-11-17] MEDS: MIDAZOLAM INJ 2 MG/2 ML VIAL IV STA (19:15)
[2024-11-17 19:16] LABS: INR 1.15
[2024-11-17 19:33] VITALS: BP 141/89; TEMP 98; O2SAT 97
[2024-11-17] MEDS: LEVALBUTEROL 1.25 MG 0.5ML CONCENTRATE NEB NEB SCH (20:07)
[2024-11-17] MEDS: traZODone 50 MG TAB PO SCH (21:42)
[2024-11-17] MEDS: DOCUSATE SODIUM 100 MG CAPSULE PO SCH (21:43)
[2024-11-17] MEDS: HEPARIN SOD 5000 UNITS/ML 1 ML VIAL/SYRINGE SC SCH (21:43)
[2024-11-17] MEDS: PROPRANOLOL 20 MG TAB PO SCH (22:01)
[2024-11-17 23:35] VITALS: BP 119/69; TEMP 98.7; O2SAT 94
[2024-11-18] VITALS (35 sets, daily range): BP systolic 110–137; BP diastolic 60–81; TEMP 97.5–98.9; O2SAT 90–99
[2024-11-18 05:54] LABS: ABG BASE EXCESS 1.7 (-2.0-2.0); ABG HCO3 24.4 MMOL/L (22.0-26.0); ABG O2 SATURATION 93.5 % (95.0-99.0); ABG PARTIAL PRESSURE CO2 30.7 mmHg (35.0-45.0); ABG PARTIAL PRESSURE O2 70.9 mmHg (75.0-100.0); ABG STANDARD HCO3 26.0 MMOL/L. (22.0-26.0); ABG TOTAL CO2 25.3 MMOL/L (22.0-29.0); ABG pH (ARTERIAL) 7.518 UNITS (7.350-7.450)
[2024-11-18 06:10] LABS: BASO # 0.1 10^3/uL (0.0-0.2); BASO % 0.6 % (0.0-1.0); EOS # 0.3 10^3/uL (0.0-0.5); EOS % 3.8 % (0.0-3.0); LYMPH # 1.8 10^3/uL (1.5-5.0); LYMPH % 22.6 % (24.0-44.0); MONO # 0.4 10^3/uL (0.0-0.8); MONO % 5.0 % (2.0-8.0); NEUTROPHILS # 5.5 10^3/uL (1.5-8.5); NEUTROPHILS % 67.0 % (36.0-66.0); PLATELET COUNT, AUTOMATED 430 10^3/uL (150-450)
[2024-11-18 06:38] LABS: CALCIUM LEVEL 7.9 MG/DL (8.5-10.1); CARBON DIOXIDE LEVEL 26 MMOL/L (20-31); CHLORIDE LEVEL 102 MMOL/L (98-107); CREATININE FOR GFR 0.60 MG/DL (0.55-1.30); GLOMERULAR FILTRATION RATE > 90.0 (>60); POTASSIUM SERUM 3.6 MMOL/L (3.5-5.1); SODIUM LEVEL 139 MMOL/L (136-145)
[2024-11-18] MEDS ORDERED: PILL CUTTER 1 EACH XX ONE (07:59)
[2024-11-18] MEDS: MOM 30 ML SUSPENSION UDC PO SCH (08:03)
[2024-11-18] MEDS: PANTOPRAZOLE 40MG TAB PO SCH (08:03)
[2024-11-18] MEDS: PROMETHAZINE 25 MG TAB PO PRN (08:04)
[2024-11-18 08:20] LABS: ALT/SGPT 38 U/L (7.0-40); AST/SGOT 28 U/L (<34)
[2024-11-18] MEDS: LIDOCAINE 1% MDV 20 ML VIAL SC STA ×2 (09:31→14:09)
[2024-11-18] MEDS: MIDAZOLAM INJ 2 MG/2 ML VIAL IV STA (09:32)
[2024-11-18] MEDS: FLUMAZENIL 0.5 MG/5 ML VIAL IV STA (09:32)
[2024-11-18] MEDS ORDERED: VANCOMYCIN HCL 1,000 MG, VIAL MATE ADAPTER 1 EACH in NS 250 ML IV SCH (10:00)
[2024-11-18 10:08] LABS: PH BODY FLUID 6.651 UNITS (NOT ESTABLISHED); SOURCE, BODY FLUID pH PLEURAL
[2024-11-18] MEDS: PERCOCET 5MG/325MG TAB PO PRN (10:12)
[2024-11-18] MEDS: CEFEPIME HCL 2 GM in DEXTROSE 5% (D5W) ADV/MINI-BAG 50 ML IV SCH ×2 (10:46→18:29)
[2024-11-18 11:19] LABS: APPEARANCE, BODY FLUID TURBID (CLEAR); PLEURAL FL COLOR BROWN (COLORLESS); SOURCE, BODY FLUID PLEURAL
[2024-11-18 11:56] LABS: HIV 1&2 SCREEN NEGATIVE (NEGATIVE)
[2024-11-18] MEDS: VANCOMYCIN HCL 1,500 MG, VIAL MATE ADAPTER 1 EACH in NS 500 ML IV ONE (12:16)
[2024-11-18] MEDS: VANCOMYCIN HCL 1,000 MG, VIAL MATE ADAPTER 1 EACH in NS 250 ML IV SCH (20:18)
[2024-11-19] VITALS (23 sets, daily range): BP systolic 120–136; BP diastolic 69–96; TEMP 96.8–98.6; O2SAT 87–97
[2024-11-19 06:07] LABS: PLATELET COUNT, AUTOMATED 392 10^3/uL (150-450)
[2024-11-19 06:33] LABS: IRON (FE) 23 UG/DL (50-170); PERCENT SATURATION 13.9 % (13.2-45.0)
[2024-11-19 06:34] LABS: VITAMIN B12 LEVEL 1006 PG/ML (211-911)
[2024-11-19 06:42] LABS: EOSINOPHILS 8 % (0-3); LYMPHOCYTES 29 % (16-44); MONOCYTES 1 % (0-5); NEUTROPHILS 62 % (28-66); PLATELET ESTIMATE NORMAL (NORMAL)
[2024-11-19 06:45] LABS: C REACTIVE PROTEIN QUANTITATIV 13.30 MG/DL (<1.0); CALCIUM LEVEL 7.4 MG/DL (8.5-10.1); CARBON DIOXIDE LEVEL 23 MMOL/L (20-31); CHLORIDE LEVEL 106 MMOL/L (98-107); CREATININE FOR GFR 0.57 MG/DL (0.55-1.30); GLOMERULAR FILTRATION RATE > 90.0 (>60); POTASSIUM SERUM 4.2 MMOL/L (3.5-5.1); SODIUM LEVEL 141 MMOL/L (136-145)
[2024-11-19] MEDS ORDERED: ALTEPLASE 2 MG/2 ML VIAL XX ONE (08:45)
[2024-11-19] MEDS: ALTEPLASE 10MG IN NS 60ML SYRINGE INTRAPLEU ONE (09:48)
[2024-11-19] MEDS: ONDANSETRON 4MG 2ML VIAL IV PRN (12:43)
[2024-11-19] MEDS: VANCOMYCIN HCL 750 MG, VIAL MATE ADAPTER 1 EACH in NS 250 ML IV SCH (12:44)
[2024-11-19] MEDS: PERCOCET 5MG/325MG TAB PO PRN (13:56)
[2024-11-20] VITALS (25 sets, daily range): BP systolic 104–140; BP diastolic 60–84; TEMP 97.1–99.6; O2SAT 90–99
[2024-11-20] MEDS ORDERED: POLYVINYL ALCOHOL OPHTH SOLN 15ML (LIQUITEARS) OU PRN (02:55)
[2024-11-20 08:45] LABS: BASO # 0.0 10^3/uL (0.0-0.2); BASO % 0.5 % (0.0-1.0); EOS # 0.6 10^3/uL (0.0-0.5); EOS % 8.9 % (0.0-3.0); LYMPH # 1.5 10^3/uL (1.5-5.0); LYMPH % 22.6 % (24.0-44.0); MONO # 0.4 10^3/uL (0.0-0.8); MONO % 5.5 % (2.0-8.0); NEUTROPHILS # 3.9 10^3/uL (1.5-8.5); NEUTROPHILS % 60.2 % (36.0-66.0); PLATELET COUNT, AUTOMATED 439 10^3/uL (150-450)
[2024-11-20 09:09] LABS: C REACTIVE PROTEIN QUANTITATIV 8.26 MG/DL (<1.0); CALCIUM LEVEL 7.7 MG/DL (8.5-10.1); CARBON DIOXIDE LEVEL 21 MMOL/L (20-31); CHLORIDE LEVEL 108 MMOL/L (98-107); CREATININE FOR GFR 0.56 MG/DL (0.55-1.30); GLOMERULAR FILTRATION RATE > 90.0 (>60); POTASSIUM SERUM 4.6 MMOL/L (3.5-5.1); SODIUM LEVEL 142 MMOL/L (136-145)
[2024-11-20] MEDS: LORazepam 1 MG TAB PO PRN (11:43)
[2024-11-20] MEDS: VANCOMYCIN HCL 750 MG, VIAL MATE ADAPTER 1 EACH in NS 250 ML IV SCH (14:01)
[2024-11-20] MEDS: LORazepam 0.5 MG TAB PO ONE (17:38)
[2024-11-20] MEDS: POLYVINYL ALCOHOL OPHTH SOLN 15ML (LIQUITEARS) OU SA PRN (17:55)
[2024-11-21] VITALS (8 sets, daily range): BP systolic 136–178; BP diastolic 76–91; TEMP 97.7–98.8; O2SAT 91–98
[2024-11-21 05:41] LABS: BASO # 0.1 10^3/uL (0.0-0.2); BASO % 0.7 % (0.0-1.0); EOS # 0.6 10^3/uL (0.0-0.5); EOS % 9.0 % (0.0-3.0); LYMPH # 1.8 10^3/uL (1.5-5.0); LYMPH % 26.1 % (24.0-44.0); MONO # 0.3 10^3/uL (0.0-0.8); MONO % 4.5 % (2.0-8.0); NEUTROPHILS # 3.9 10^3/uL (1.5-8.5); NEUTROPHILS % 57.6 % (36.0-66.0); PLATELET COUNT, AUTOMATED 466 10^3/uL (150-450)
[2024-11-21 06:06] LABS: CALCIUM LEVEL 8.1 MG/DL (8.5-10.1); CARBON DIOXIDE LEVEL 24 MMOL/L (20-31); CHLORIDE LEVEL 107 MMOL/L (98-107); CREATININE FOR GFR 0.63 MG/DL (0.55-1.30); GLOMERULAR FILTRATION RATE > 90.0 (>60); POTASSIUM SERUM 4.5 MMOL/L (3.5-5.1); SODIUM LEVEL 139 MMOL/L (136-145)
[2024-11-21] MEDS ORDERED: DOXY100C3 PO (10:40)
== END 2024-11-21 11:33 | disposition left against medical advice (07) | DRG 137 ==
LOC: M ED 03:48 → M ED INP 16:14 → M PCU 17:20
PROVIDERS: ADMIT Internal Medicine; ATTEND Internal Medicine
PROC: 0W9930Z Drainage of Right Pleural Cavity with Drainage Device, Percutaneous Approach (ICD-10-PCS; principal; 2024-11-18)
PROC: B246ZZZ Ultrasonography of Right and Left Heart (ICD-10-PCS; 2024-11-18)
PROC: 3E0L3GC Introduction of Other Therapeutic Substance into Pleural Cavity, Percutaneous Approach (ICD-10-PCS; 2024-11-19)
DX: J86.9 Pyothorax without fistula (principal); J91.8 Pleural effusion in other conditions classified elsewhere; J18.9 Pneumonia, unspecified organism; F31.9 Bipolar disorder, unspecified; F41.9 Anxiety disorder, unspecified; J98.11 Atelectasis; R74.01 Elevation of levels of liver transaminase levels; F43.10 Post-traumatic stress disorder, unspecified; G47.30 Sleep apnea, unspecified; D63.8 Anemia in other chronic diseases classified elsewhere; A49.02 Methicillin resistant Staphylococcus aureus infection, unspecified site; R11.15 Cyclical vomiting syndrome unrelated to migraine; Z79.899 Other long term (current) drug therapy; Z88.0 Allergy status to penicillin; Z56.0 Unemployment, unspecified

== ENCOUNTER → 2024-11-18 | Outpatient (CLI) | payer OTHER ==
[~2024-11-18] MED LIST changes: +DOXY100C3 PO; +LAMO100T3 PO; +ONDA-83 PO; +PROM25TA12 PO
== END ==
LOC: EEVIPCON 07:19 → M SOG 07:19
PROVIDERS: ATTEND Physician Assistant
DX: Z53.9 Procedure and treatment not carried out, unspecified reason (principal)

== ENCOUNTER → 2024-12-13 | Outpatient (CLI) | payer OTHER | LOC: M WUC 12:47 | PROVIDERS: ATTEND Student in an Organized Health Care Education/Training Program | DX: J86.9 Pyothorax without fistula (principal); J94.8 Other specified pleural conditions; R91.8 Other nonspecific abnormal finding of lung field; J98.11 Atelectasis; J90 Pleural effusion, not elsewhere classified ==

== ENCOUNTER → 2024-12-16 | Outpatient (CLI) | payer OTHER | LOC: M SOG 07:51 | PROVIDERS: ATTEND Physician Assistant | DX: S52.572A Other intraarticular fracture of lower end of left radius, initial encounter for closed fracture (principal); W18.30XA Fall on same level, unspecified, initial encounter; Y92.009 Unspecified place in unspecified non-institutional (private) residence as the place of occurrence of the external cause ==

== ENCOUNTER → 2025-01-20 | Outpatient (CLI) | payer OTHER | LOC: M SOG 07:34 | PROVIDERS: ATTEND Physician Assistant | DX: S52.572D Other intraarticular fracture of lower end of left radius, subsequent encounter for closed fracture with routine healing (principal) ==